=== PATIENT | female | born 1995 | race Caucasian/White ===

== ENCOUNTER 2017-06-20 11:24 | Emergency (ER) | payer MEDICAID ==
[2017-06-20 11:32] VITALS: BP 141/91
--- NOTE | 2017-06-20 12:25 | ED Physician Documentation ---
History of Present Illness - Stated complaint Stated Complaint: EAR PX - Chief complaint Chief Complaint: Heent - Additonal information Additional information: hx from pt 22 female recent cough sinus pressure fever myalgias fatigue and now R ear pain denies preg Review of Systems Constitutional: reports: Fever, Chills, Myalgias Ears: reports: Ear pain Nose: reports: Congestion, Sinus pressure / pain Throat: denies: Sore throat Respiratory: reports: Cough : denies: Now EGA (denies) PD PAST MEDICAL HISTORY - Past Medical History Past Medical History: Yes Psych: Depression, ADD/ADHD - Past Surgical History Past Surgical History: No - Present Medications Home Medications: Ambulatory Orders Medication Instructions Recorded Confirmed Add Medication 06/20/17 Amoxicillin 500 mg PO Q8H #30 capsule 06/20/17 Escitalopram [Lexapro] 20 mg PO DAILY 06/20/17 06/20/17 Ibuprofen [Motrin] 400 mg PO Q6H PRN #30 tablet 06/20/17 Oxymetazoline HCl [Afrin] 2 spray NS BID PRN #1 bottle 06/20/17 - Allergies Allergies/Adverse Reactions: Allergies Allergy/AdvReac Type Severity Reaction Status Date / Time No Known Drug Allergies Allergy Verified 06/20/17 11:29 - Social History Does the pt smoke?: No Smoking Status: Never smoker Does the pt drink ETOH?: No Does the pt have substance abuse?: No - Immunizations Immunizations are current?: Yes - POLST Patient has POLST: No PD ED PE NORMAL - Vitals Vital signs reviewed: Yes - HEENT HEENT: Atraumatic, Other (R AOM, L benign, pharynx benign, diffuse sinus TTP) - Neck Neck: Supple, no meningeal sign - Cardiac Cardiac: RRR - Respiratory Respiratory: No respiratory distress, Clear bilaterally - Neuro Neuro: Alert and oriented X 3 Results - Vitals Vitals: Vital Signs - 24 hr 06/20/17 11:27 Temperature 36.2 C L Heart Rate 98 Respiratory 16 Rate Blood Pressure 141/91 H O2 Saturation 100 Oxygen O2 Source Room air Departure - Departure Disposition: 01 Home, Self Care Clinical Impression: Otitis media Qualifiers: Otitis media type: suppurative Chronicity: acute Laterality: right Recurrence: not specified as recurrent Spontaneous tympanic membrane rupture: without spontaneous rupture Qualified Code(s): H66.001 - Acute suppurative otitis media without spontaneous rupture of ear drum, right ear Condition: Good Instructions: ED Otitis Media Acute Adult Prescriptions: Amoxicillin 500 mg PO Q8H #30 capsule Ibuprofen [Motrin] 400 mg PO Q6H PRN #30 tablet PRN Reason: Pain Oxymetazoline HCl [Afrin] 2 spray NS BID PRN #1 bottle PRN Reason: nasal sinus ear congestion Forms: Activity restrictions
[2017-06-20] MEDS ORDERED: IBUPROFEN 400 MG TABLET PO STA (12:26)
== END 2017-06-20 12:36 | disposition home or self-care (01) ==
LOC: ED 11:24
DX: H66.001 Acute suppurative otitis media without spontaneous rupture of ear drum, right ear (principal)
CPT/HCPCS: 99283; A9270

== ENCOUNTER 2019-02-19 11:14 | Emergency (ER) | payer MEDICAID ==
--- NOTE | 2019-02-19 12:09 | ED Physician Documentation ---
PD HPI CHEST PAIN - Stated complaint Stated Complaint: CHEST PX - Chief complaint Chief Complaint: Cardiac - History obtained from History obtained from: Patient - History of Present Illness Timing - onset: How many days ago (2) Timing - duration: Days (2) Timing - details: Still present Quality: Pain. No: Pressure Location: Left chest Worsened by: Inspiration, Position Associated symptoms: Shortness of air. No: Nausea, Vomiting Similar symptoms before: Has not had sx before Recently seen: Not recently seen - Additional information Additional information: There is a 24-year-old presents with her mother complaints that she is experiencing chest pain on the left side anteriorly that started 2 mornings ago is been constant and it hurts worse if she breathes in or lays down flat. She started feeling short of breath yesterday and has been really restless at night having a difficult time sleeping. She took a gram of Tylenol for a fever of 102 degrees the day before the symptoms started. She has not had any further treat fevers and she has not taken any more medications for the pain. She denies coughing, stuffy nose or sore throat. No palpitations or dizziness. She has had some body aches. 5 days ago she had some diarrhea that became just liquid now it is firming up. She was only urinating a small amount when she was having all the diarrhea but it was not burning. She denies history of DVT however she is on control and to prevent herself from having periods that she is skipping the placebo pills and just starting the next pack early. Review of Systems Constitutional: denies: Fever Nose: denies: Rhinorrhea / runny nose, Congestion Throat: denies: Sore throat Cardiac: reports: Chest pain / pressure. denies: Palpitations, Pedal edema Respiratory: reports: Dyspnea (Had to stop while walking and leaning over to catch her breath). denies: Cough GI: denies: Nausea, Vomiting, Diarrhea : denies: Dysuria Skin: denies: Rash Musculoskeletal: denies: Extremity pain Neurologic: denies: Generalized weakness, Numbness, Near syncope, Syncope Endocrine: reports: Other (She is not diabetic) Immunocompromised: denies: Immunocompromised PD PAST MEDICAL HISTORY - Past Medical History Psych: Depression, ADD/ADHD - Past Surgical History Past Surgical History: No - Present Medications Home Medications: Ambulatory Orders Medication Instructions Recorded Confirmed Add Medication 06/20/17 Amoxicillin 500 mg PO Q8H #30 capsule 06/20/17 Escitalopram [Lexapro] 20 mg PO DAILY 06/20/17 06/20/17 Ibuprofen [Motrin] 400 mg PO Q6H PRN #30 tablet 06/20/17 Oxymetazoline HCl [Afrin] 2 spray NS BID PRN #1 bottle 06/20/17 - Allergies Allergies/Adverse Reactions: Allergies Allergy/AdvReac Type Severity Reaction Status Date / Time No Known Drug Allergies Allergy Verified 02/19/19 11:27 - Social History Does the pt smoke?: No Smoking Status: Never smoker Does the pt drink ETOH?: No Does the pt have substance abuse?: No - Immunizations Immunizations are current?: Yes - POLST Patient has POLST: No PD ED PE NORMAL - Vitals Vital signs reviewed: Yes - General General: Alert and oriented X 3, No acute distress, Well developed/nourished - HEENT HEENT: Atraumatic, PERRL, EOMI, Moist mucous membranes, Pharynx benign - Neck Neck: Supple, no meningeal sign, Thyroid normal - Cardiac Cardiac: RRR, No murmur, Strong equal pulses - Respiratory Respiratory: No respiratory distress, Clear bilaterally - Abdomen Abdomen: Normal bowel sounds, Soft, No organomegaly - Derm Derm: Normal color, Warm and dry, No rash - Extremities Extremities: No deformity, Normal ROM s pain, No edema - Neuro Neuro: Alert and oriented X 3, rehab care assistant 2-12 intact, No motor deficit, No sensory deficit, Normal speech - Psych Psych: Normal mood, Normal affect Results - Vitals Vitals: Vital Signs - 24 hr 02/19/19 02/19/19 11:23 15:12 Temperature 36.7 C 37.1 C Heart Rate 87 76 Respiratory 14 16 Rate Blood Pressure 143/76 H 133/84 H O2 Saturation 98 100 Oxygen O2 Source Room air - EKG (time done) 1133 Rate: Rate (enter#) (87) Rhythm: NSR Intervals: Normal ME. No: Wide QRS Ischemia: Q waves (III), T wave inversion (III) Other comments: Other comments (S1, Q3, T3 present) Compare to prior EKG: Old EKG unavailable - Labs Labs: Laboratory Tests 02/19/19 02/19/19 02/19/19 12:31 12:31 12:31 WBC 7.0 RBC 4.48 Hgb 13.6 Hct 40.4 MCV 90.2 MCH 30.4 MCHC 33.7 RDW 12.4 Plt Count 269 MPV 10.4 Neut # (Auto) 3.6 Lymph # (Auto) 2.6 [place] # (Auto) 0.6 Eos # (Auto) 0.2 Baso # (Auto) 0.0 Absolute Nucleated RBC 0.00 Nucleated RBC % 0.0 PT 12.6 INR 1.1 D-Dimer 200.8 Sodium 138 Potassium 3.1 L Chloride 103 Carbon Dioxide 28 Anion Gap 7.0 BUN 10 Creatinine 0.6 Estimated GFR (MDRD) 124 Glucose 86 Calcium 8.8 Total Bilirubin 0.8 AST 31 ALT 66 H Alkaline Phosphatase 63 Total Protein 7.2 Albumin 3.9 Globulin 3.3 Albumin/Globulin Ratio 1.2 Lipase 24 Serum HCG, Qual 02/19/19 12:31 WBC RBC Hgb Hct MCV MCH MCHC RDW Plt Count MPV Neut # (Auto) Lymph # (Auto) [place] # (Auto) Eos # (Auto) Baso # (Auto) Absolute Nucleated RBC Nucleated RBC % PT INR D-Dimer Sodium Potassium Chloride Carbon Dioxide Anion Gap BUN Creatinine Estimated GFR (MDRD) Glucose Calcium Total Bilirubin AST ALT Alkaline Phosphatase Total Protein Albumin Globulin Albumin/Globulin Ratio Lipase Serum HCG, Qual NEGATIVE - Rads (name of study) CXR Radiology: EMP read indepedently (neg), See rad report CTA chest Radiology: See rad report (neg PE) PD MEDICAL DECISION MAKING - ED course Complexity details: reviewed results, re-evaluated patient, d/w patient, d/w family ED course: Chest x-ray was clear.EKG does not show any acute changes. Labs were normal and CTA of the chest did not show any evidence of a significant pulmonary embolus. He did comment that the subsegmental arteries were not well visualized. Patient received Toradol 30 mg IV still rating her pain at an 8 out of 10. She was given hydrocodone tablet. We discussed pleurisy and the need for anti- inflammatory [id number]. Follow-up with her primary care provider if her symptoms are persisting. Departure - Departure Disposition: 01 Home, Self Care Clinical Impression: Pleurisy Condition: Good Instructions: ED Chest Pain Pleurisy Follow-Up: Bindu Cam MD [Primary Care Provider] - Comments: Take ibuprofen 3 to 4 tablets every 8 hours with food for the next 4 to 5 days. Follow-up with your primary care provider for reevaluation if your symptoms are not improving in another 10 to 12 days. Return if you have increasing shortness of breath, increasing chest pain, fever or other problems arise.
[2019-02-19 12:51] LABS: BASOPHILS % (AUTO) 0.4 %; EOSINOPHILS # (AUTO) 0.2 10^3/uL (0.0-0.7); EOSINOPHILS % (AUTO) 2.3 %; HGB - HEMOGLOBIN 13.6 g/dL (12.0-16.0); LYMPHOCYTES # (AUTO) 2.6 10^3/uL (1.5-3.5); LYMPHOCYTES % (AUTO) 37.1 %; MEAN CORPUSCULAR HEMOGLOBIN 30.4 pg (27.0-31.0); MEAN CORPUSCULAR HGB CONC 33.7 g/dL (32.0-36.0); MEAN CORPUSCULAR VOLUME 90.2 fL (81.0-99.0); MEAN PLATELET VOLUME 10.4 fL (7.9-10.8); MONOCYTES # (AUTO) 0.6 10^3/uL (0.0-1.0); MONOCYTES % (AUTO) 7.9 %; NEUTROPHILS # (AUTO) 3.6 10^3/uL (1.5-6.6); PLT - PLATELET COUNT 269 10^3/uL (130-450); RED BLOOD COUNT 4.48 10^6/uL (4.20-5.40); RED CELL DISTRIBUTION WIDTH 12.4 % (12.0-15.0)
[2019-02-19 12:52] LABS: INR 1.1 (0.8-1.2); PT - PROTHROMBIN TIME 12.6 secs (9.9-12.6)
[2019-02-19 12:56] LABS: ALBUMIN 3.9 g/dL (3.2-5.5); ALBUMIN/GLOBULIN RATIO 1.2 (1.0-2.2); BILIRUBIN,TOTAL 0.8 mg/dL (0.2-1.0); CALCIUM 8.8 mg/dL (8.5-10.3); CREATININE 0.6 mg/dL (0.4-1.0); TOTAL PROTEIN 7.2 g/dL (6.7-8.2)
[2019-02-19 13:02] LABS: D-DIMER 200.8 ng/mL (200.0-255.0)
[2019-02-19 13:05] LABS: HCG,QUALITATIVE BLOOD NEGATIVE
--- NOTE | 2019-02-19 13:21 | XRAY Report ---
Reason: cough Procedure Date: 02/19/2019 Accession Number: [id number] / [id number] Procedure: XR - Chest 2 View X-Ray CPT Code: 14502 Final Report FULL RESULT: EXAM: CHEST RADIOGRAPHY EXAM DATE: 02/19/2019 12:54 PM. CLINICAL HISTORY: Cough. COMPARISON: None. TECHNIQUE: 2 views. FINDINGS: Lungs/Pleura: No focal opacities. No effusions. Mediastinum: Heart and mediastinal contours are unremarkable. Other: None. IMPRESSION: No acute radiographic cardiopulmonary process RAD[facility]
[2019-02-19] MEDS ORDERED: IOVERSOL 320 100 ML VIAL IVP ONE ×2 (13:24→15:58)
[2019-02-19] MEDS ORDERED: KETOROLAC 30 MG/ML VIAL IVP STA (13:54)
[2019-02-19] MEDS ORDERED: SODIUM CHLORIDE 0.9% 1,000 ML IV ONE (13:56)
--- NOTE | 2019-02-19 14:30 | CT Report ---
Reason: Pleuritic CP Procedure Date: 02/19/2019 Accession Number: [id number] / [id number] Procedure: CT - ANGIO CHEST W/WO CPT Code: Final Report FULL RESULT: EXAM: CT ANGIOGRAM CHEST EXAM DATE: 02/19/2019 01:56 PM. CLINICAL HISTORY: Pleuritic chest pain. COMPARISON: CHEST 2 VIEW 02/19/2019 12:45 PM. TECHNIQUE: Routine helical imaging was performed through the chest in the pulmonary arterial phase. IV Contrast: 63 mL Optiray 320. Reconstructions: Coronal 3-D MIP reconstructions.Sagittal and coronal. In accordance with CT protocol optimization, one or more of the following dose reduction techniques were utilized for this exam: automated exposure control, adjustment of mA and/or KV based on patient size, or use of iterative reconstructive technique. FINDINGS: Pulmonary Arteries: Diagnostic quality: Adequate through the proximal segmental arteries. The distal segmental and subsegmental branches are suboptimally evaluated due to poor contrast opacification and respiratory motion artifact. A significant volume of the intravenous contrast bolus remains in the superior vena cava, right subclavian vein, and right axillary vein. Lungs/Pleura: No consolidation, pleural effusion, or pneumothorax. Small subpleural blebs in the posterior upper and lower lobes bilaterally. Mediastinum: Heart size is normal. No pericardial effusion. No mediastinal lymphadenopathy. Thoracic Aorta: Normal in course and caliber. No evidence of aneurysm or dissection. Upper Abdomen: Unremarkable. Other: None. IMPRESSION: No evidence of acute pulmonary embolus in the central or proximal segmental branches. The distal segmental and subsegmental pulmonary arterial branches are not well evaluated, as described above. No acute cardiopulmonary findings. RADIA
[2019-02-19] MEDS ORDERED: HYDROcod/ACETAM 5/325 MG TABLET PO STA (15:07)
[2019-02-19 15:13] VITALS: BP 133/84
== END 2019-02-19 15:29 | disposition home or self-care (01) ==
LOC: ED 11:14
DX: R09.1 Pleurisy (principal)
CPT/HCPCS: 36415; 71046; 71275; 80053; 83690; 84703; 85025; 85379; 85610; 93005; 96361; 96374; 99284; A9270; Q9967